=== PATIENT | male | born 1955 | race Asian ===

== ENCOUNTER 2021-03-22 00:14 | Emergency (ER) | payer OTHER ==
[~2021-03-22] VITALS: Ht 169.2 cm; Wt 72.3 kg
[2021-03-22 00:22] VITALS: BP 145/82
[2021-03-22] MEDS: MORPHINE SULFATE 4 MG/ML SYR IM ONE (01:33)
[2021-03-22] MEDS: KETOROLAC 30 MG/ML VIAL IM ONE (01:33)
--- NOTE | 2021-03-22 01:45 | NUR ---
Patient does not wish to proceed with medical care recommended by . Patient given information related to possible complications, up to and including , which could occur as a result of leaving hospital at this time. Patient verbalizes understanding of risks involved leaving against medical advice. Patient has signed AMA form.
[2021-03-22 02:22] VITALS: BP 145/82
== END 2021-03-22 01:45 | disposition left against medical advice (07) ==
LOC: MED 00:14
DX: T20.16XA Burn of first degree of forehead and cheek, initial encounter (principal); X08.8XXA Exposure to other specified smoke, fire and flames, initial encounter; Y93.89 Activity, other specified; Y92.89 Other specified places as the place of occurrence of the external cause; Y99.8 Other external cause status
CPT/HCPCS: 16000; 96372; 99284; J1885; J2270